=== PATIENT | male | born 1945 | race Caucasian/White ===

== ENCOUNTER 2016-08-28 09:32 | Inpatient (IN) | payer MEDICARE, BC ==
[~2016-08-28] VITALS: Ht 190.5 cm; Wt 110.8 kg
[~2016-08-28 09:32] MED LIST: NATURAL POTASS595 MG PO; NORVASC 10MG10 MG PO; TENORMIN 2525 MG/TAB PO
[2016-11-11] VITALS (10 sets, daily range): BP systolic 120–144; BP diastolic 77–84; PULSE 16–98; TEMP 97–98.6
[2016-11-11 17:03] LABS: HEMOGLOBIN 11.5 g/dl (13.5-18.0)
[2016-11-12] VITALS (10 sets, daily range): BP systolic 96–136; BP diastolic 55–73; PULSE 62–96; TEMP 97.5–100.5
[2016-11-12] MEDS ORDERED: CELEBREX 200MG200 MG PO (06:28)
[2016-11-12] MEDS ORDERED: ASPI325T6 PO (06:28)
[2016-11-12] MEDS ORDERED: NORCO 325 MG-7.1 TAB PO (06:29)
[2016-11-12] MEDS ORDERED: ULTRAM 50MG TAB50 MG PO (06:29)
[2016-11-12 07:15] LABS: HEMOGLOBIN 9.4 g/dl (13.5-18.0)
[2016-11-13] VITALS (13 sets, daily range): BP systolic 99–134; BP diastolic 50–77; PULSE 60–88; TEMP 97.4–98.6
[2016-11-13 08:05] LABS: HEMATOCRIT 25.3 % (42.0-52.0); HEMOGLOBIN 8.1 g/dl (13.5-18.0)
[2016-11-14 00:01] VITALS: BP 124/74; PULSE 98; TEMP 98.4
[2016-11-14 03:59] VITALS: BP 131/67; PULSE 73; TEMP 99
[2016-11-14 07:22] VITALS: BP 117/79; PULSE 95; TEMP 97.7
== END 2016-11-14 11:42 | disposition swing bed (61) | DRG 462 ==
LOC: JCC 11-11 05:57 → INPTSU 11-11 05:57 → JCC 11-11 06:03
PROVIDERS: Nurse Anesthetist, Certified Registered; Orthopaedic Surgery; Physician Assistant
PROC: 0SRC0J9 Replacement of Right Knee Joint with Synthetic Substitute, Cemented, Open Approach (ICD-10-PCS; 2016-11-11)
PROC: 0SRD0J9 Replacement of Left Knee Joint with Synthetic Substitute, Cemented, Open Approach (ICD-10-PCS; principal; 2016-11-11 08:15)
DX: M17.0 Bilateral primary osteoarthritis of knee (principal); I10 Essential (primary) hypertension; J45.909 Unspecified asthma, uncomplicated
CPT/HCPCS: A4315; A9284; C1713; C1776; J0690; J1885; J1940; J2250; J2704; J3010; J7040; J7120; P9016

== ENCOUNTER → 2016-11-04 | Outpatient (CLI) | payer MEDICARE, BC ==
[~2016-11-04] MED LIST changes: +ASPI325T6 PO; +CELEBREX 200MG200 MG PO; +NORCO 325 MG-7.1 TAB PO; +ULTRAM 50MG TAB50 MG PO
== END ==
LOC: COL.LAB 13:10
DX: Z01.812 Encounter for preprocedural laboratory examination (principal); M17.0 Bilateral primary osteoarthritis of knee

== ENCOUNTER 2019-06-21 09:54 | Outpatient (RCR) | payer MEDICARE, BC ==
[~2019-06-21] VITALS: Ht 190.5 cm; Wt 100.0 kg
[2019-06-21] MEDS ORDERED: CEFAZOLIN1 G1 IV (11:42)
[2019-06-21 11:44] VITALS: BP 128/86; BP 128/95; PULSE 80; TEMP 97.6
[2019-06-21 12:15] VITALS: BP 130/68; PULSE 78
--- NOTE | 2019-06-21 12:18 | NUR ---
Pt aryan PICC placement well. Pt discharged per ambulation.
== END 2019-06-21 14:02 | disposition home or self-care (01) ==
LOC: EUO 09:54
DX: Z01.818 Encounter for other preprocedural examination (principal); T84.54XA Infection and inflammatory reaction due to internal left knee prosthesis, initial encounter
CPT/HCPCS: C1751; J0690

== ENCOUNTER 2020-01-26 08:46 | Outpatient (CLI) | payer MEDICARE, BC ==
[~2020-01-26] VITALS: Ht 190.5 cm; Wt 105.8 kg
[~2020-01-26 08:46] MED LIST changes: +CEFAZOLIN1 G1 IV
[2020-01-26] MEDS ORDERED: CEPHALEXIN500 M1 PO (09:41)
[2020-01-26] MEDS ORDERED: FOLIC ACID 11 MG/TA1 PO (09:42)
[2020-01-26] MEDS ORDERED: VITAMINC1000TA PO (09:42)
[2020-01-26] MEDS ORDERED: BACTROBAN 22GM22 GM NAS (09:43)
[2020-01-26] MEDS ORDERED: ONE-A-DAY ESSE1 EACH PO (09:43)
[2020-01-26] MEDS ORDERED: NATURAL IRON65 MG PO (09:43)
[2020-01-26 09:47] VITALS: BP 138/78; PULSE 65; TEMP 98.2
== END 2020-01-27 13:47 | disposition home or self-care (01) ==
LOC: EUO 08:46
DX: Z45.2 Encounter for adjustment and management of vascular access device (principal); Z01.818 Encounter for other preprocedural examination; Z96.652 Presence of left artificial knee joint; T84.54XA Infection and inflammatory reaction due to internal left knee prosthesis, initial encounter; M00.9 Pyogenic arthritis, unspecified; Z79.2 Long term (current) use of antibiotics
CPT/HCPCS: C1751